=== PATIENT | male | born 1975 | race Caucasian/White ===

== ENCOUNTER 2016-08-28 21:59 | Observation (INO) | payer OTHER ==
[~2016-08-28 21:59] MED LIST: LORTAB 7.5/5001 TAB; PRILOSEC20 M1 PO
[2016-08-28] MEDS ORDERED: NEXIUM 24HR20 M2 PO (22:13)
[2016-08-28] MEDS ORDERED: WELLBUTRIN XL300 M3 PO ×2 (22:14→22:33)
[2016-08-29 05:17] LABS: BASO % 0.1 % (0-2); HCT-HEMATOCRIT 40.6 % (36.0-53.5); HGB-HEMOGLOBIN 14.2 gm/dl (13.5-17.0); IMMATURE GRANULOCYTES ABSOLUTE 0.02 tho/cmm (0-0.03); IMMATURE GRANULOCYTES PERCENT 0.1 % (0-0.3); LYMPH % 3.6 % (20-45); LYMPH ABSOLUTE COUNT 0.6 tho/cmm (0.8-4.5); MCH (MEAN CORPUSCULAR HGB) 31.1 pg (28.0-32.0); MEAN PLATELET VOLUME 9.6 cmc (9.4-12.4); MONO % 4.3 % (0-12); MONOCYTE ABSOLUTE COUNT 0.7 tho/cmm (0.0-1.2); NEUTROPHIL ABSOLUTE COUNT 15.5 tho/cmm (1.6-8.0); NEUTROPHIL-AUTOMATED 15.5 tho/cmm (1.6-8.0); NEUTROPHILS % 91.9 % (40-80); PLATELET COUNT 210 tho/cmm (150-450); RED BLOOD COUNT 4.56 mil/cmm (4.40-5.70); RED CELL DISTRIBUTION WIDTH 12.9 % (12.4-16.4); WHITE BLOOD COUNT 16.9 tho/cmm (4.0-10.0)
[2016-08-29 05:38] LABS: ANION GAP 14 mmol/L (0-20); BLOOD UREA NITROGEN 7 mg/dl (6-24); CALCIUM 8.6 mg/dl (8.5-10.5); CARBON DIOXIDE-VENOUS 23 mmol/L (22-32); CHLORIDE 104 mmol/l (96-110); CREATININE 1.04 mg/dl (0.60-1.30); GLUCOSE 178 mg/dL (70-110); POTASSIUM 4.2 mmol/L (3.7-5.1); SODIUM 137 mmol/L (135-145); eGFR VALUE FOR BLACK >90 mL/Min
[2016-08-29] MEDS ORDERED: LORTAB 5-325 M1 EAC1 PO (16:06)
[2016-08-29] MEDS ORDERED: COLACE100 M1 PO (16:07)
== END 2016-08-29 18:27 ==
LOC: CAR1 21:59
PROVIDERS: ADMIT Surgery
PROC: 0DTJ4ZZ Resection of Appendix, Percutaneous Endoscopic Approach (ICD-10-PCS; principal; 2016-08-28)
DX: K35.3 Acute appendicitis with localized peritonitis (principal); K40.90 Unilateral inguinal hernia, without obstruction or gangrene, not specified as recurrent; F41.9 Anxiety disorder, unspecified; F32.9 Major depressive disorder, single episode, unspecified; F17.210 Nicotine dependence, cigarettes, uncomplicated; K21.9 Gastro-esophageal reflux disease without esophagitis; Z98.890 Other specified postprocedural states
CPT/HCPCS: J1885; J7030

== ENCOUNTER 2016-08-31 12:48 | Observation (INO) | payer OTHER ==
[~2016-08-31 12:48] MED LIST changes: +COLACE100 M1 PO; +LORTAB 5-325 M1 EAC1 PO; +NEXIUM 24HR20 M2 PO; +WELLBUTRIN XL300 M3 PO
[2016-08-31] MEDS ORDERED: MAGNESIUM OXID400 M1 PO (14:14)
[2016-08-31] MEDS ORDERED: MEN'S MULTI-VI1 EACH PO (14:15)
[2016-08-31] MEDS ORDERED: TART CHERRY CA1 EACH PO (14:22)
[2016-09-01 05:15] LABS: BASO % 0.2 % (0-2); EOS % 3.6 % (0-7); EOSINOPHIL ABSOLUTE COUNT 0.2 tho/cmm (0.0-0.7); HCT-HEMATOCRIT 38.7 % (36.0-53.5); HGB-HEMOGLOBIN 13.5 gm/dl (13.5-17.0); IMMATURE GRANULOCYTES ABSOLUTE 0.01 tho/cmm (0-0.03); IMMATURE GRANULOCYTES PERCENT 0.2 % (0-0.3); LYMPH % 15.5 % (20-45); LYMPH ABSOLUTE COUNT 0.9 tho/cmm (0.8-4.5); MCH (MEAN CORPUSCULAR HGB) 31.4 pg (28.0-32.0); MCHC MEAN CORPUSCULAR HGB CONC 34.9 % (32.0-36.0); MEAN PLATELET VOLUME 9.4 cmc (9.4-12.4); MONO % 11.3 % (0-12); MONOCYTE ABSOLUTE COUNT 0.7 tho/cmm (0.0-1.2); NEUTROPHIL ABSOLUTE COUNT 4.2 tho/cmm (1.6-8.0); NEUTROPHIL-AUTOMATED 4.2 tho/cmm (1.6-8.0); NEUTROPHILS % 69.2 % (40-80); PLATELET COUNT 238 tho/cmm (150-450); RED CELL DISTRIBUTION WIDTH 12.7 % (12.4-16.4)
[2016-09-01 05:22] LABS: ANION GAP 12 mmol/L (0-20); BLOOD UREA NITROGEN 11 mg/dl (6-24); CALCIUM 8.2 mg/dl (8.5-10.5); CARBON DIOXIDE-VENOUS 26 mmol/L (22-32); CHLORIDE 106 mmol/l (96-110); CREATININE 0.79 mg/dl (0.60-1.30); GLUCOSE 98 mg/dL (70-110); SODIUM 140 mmol/L (135-145); eGFR VALUE FOR BLACK >90 mL/Min
[2016-09-01 05:27] LABS: WHITE BLOOD COUNT 6.1 tho/cmm (4.0-10.0)
--- NOTE | 2016-09-02 16:00 | NUR ---
VIRTUAL CARE NOTE: PT SITTING ON CHAIR, STATES DOING GOOD, TOLERATES LUNCH WELL. DENIES ANY PROBLEMS, READY FOR DISCHARGE INSTRUCTIONS. INFORMATION GIVEN TO PT, QUESTIONS ANSWERED. INFORMED FLOOR NURSE DISCHARGE TEACHING DONE.
== END 2016-09-02 17:54 ==
LOC: 5WD 12:48
PROVIDERS: ADMIT Surgery
DX: K56.7 Ileus, unspecified (principal); Z79.899 Other long term (current) drug therapy; Z87.442 Personal history of urinary calculi; Z90.49 Acquired absence of other specified parts of digestive tract; Z98.890 Other specified postprocedural states
CPT/HCPCS: C9113; G0009; G0378; J1650; J1956; J2405; J3480